=== PATIENT | male | born 1980 ===

== ENCOUNTER 2017-05-12 13:07 | Emergency (ER) | payer OTHER ==
[2017-05-12 13:15] VITALS: BP 149/80; PULSE 60; RESP 16; TEMP 97.4; O2SAT 99
--- NOTE | 2017-05-12 14:14 | ED PDOC ---
Lower Extremity Pain/Injury Time Seen by Provider: 05/12/17 13:29 Chief Complaint (Nursing): Lower Extremity Problem/Injury Chief Complaint (Provider): Left knee pain History Per: Patient History/Exam Limitations: no limitations Onset/Duration Of Symptoms: Days (x2) Current Symptoms Are (Timing): Still Present Additional Complaint(s): Gabriel Cruz Jr is a 36-year-old male who presents to the emergency department complaining of left knee pain since yesterday. Patient states he was walking up the stairs when he noticed a sharp pain to lateral aspect of the left knee. He took Tylenol yesterday with some improvement, but the pain returned after tylenol wore off. Patient denies any numbness or tingling to the area. PMD: None Past Medical History Reviewed: Historical Data, Nursing Documentation, Vital Signs Vital Signs: Last Vital Signs Temp 97.4 F L 05/12/17 13:13 Pulse 60 05/12/17 13:13 Resp 16 05/12/17 13:13 BP 149/80 05/12/17 13:13 Pulse Ox 99 05/12/17 13:13 - Medical History PMH: No Chronic Diseases - Surgical History Surgical History: Hernia Repair - Family History Family History: States: No Known Family Hx - Living Arrangements Living Arrangements: With Family - Social History Current smoker - smoking cessation education provided: No Alcohol: None Drugs: Denies - Home Medications Home Medications: Ambulatory Orders Medication Instructions Recorded Cyclobenzaprine [Cyclobenzaprine 10 mg PO Q8 PRN #30 tab 04/22/16 HCl] Naproxen [Naprosyn] 500 mg PO BID PRN #30 tab 04/22/16 Ibuprofen [Motrin] 600 mg PO Q6 PRN #15 tab 05/12/17 - Allergies Allergies/Adverse Reactions: Allergies Allergy/AdvReac Type Severity Reaction Status Date / Time No Known Allergies Allergy Verified 04/22/16 11:57 Wells Criteria for PE - Wells Criteria for Pulmonary Embolism Clinical Signs and Symptoms of DVT: No P.E is #1 Diagnosis, or Equally Likely: No Heart Rate >100: No Immobilization at least 3 days;Surgery previous 4 weeks: No Previous, objectively diagnosed PE or DVT: No Hemoptysis: No Malignancy w/treatment within 6 months, or palliative: No Total Score: 0 Review of Systems ROS Statement: Except As Marked, All Systems Reviewed And Found Negative Musculoskeletal: Positive for: Other (left knee pain) Physical Exam - Reviewed Nursing Documentation Reviewed: Yes Vital Signs Reviewed: Yes - Physical Exam Appears: Positive for: Well, Non-toxic, No Acute Distress Head Exam: Positive for: ATRAUMATIC, NORMAL INSPECTION, NORMOCEPHALIC Skin: Positive for: Normal Color. Negative for: Rash Eye Exam: Positive for: Normal appearance Pulses-Dorsalis Pedis (L): 2+ Pulses-Dorsalis Pedis (R): 2+ Extremity: Positive for: Tenderness (Point tenderness at lateral left tibial plateau with full rom of left knee), Capillary Refill (< 2 sec), Swelling (mild localized swelling to lateral left knee). Negative for: Calf Tenderness Neurologic/Psych: Positive for: Alert, Oriented - ECG O2 Sat by Pulse Oximetry: 99 (RA) Pulse Ox Interpretation: Normal - Other Rad Left knee x-ray X-Ray: Interpreted by Me, Viewed By Me X-Ray Interpretation: no fx, no dis Medical Decision Making Medical Decision Making: Time: 14:12 Initial Impression: 36 year old male with left knee pain Initial Plan: --X-Ray Left Knee --Pain meds offered but patient declined Patient aware of x-ray results. All questions answered. Knee immobilizer applied to left leg. Patient was given prescription for Motrin for pain relief. He was referred to orthopedist on-call for follow-up. Patient was offered crutches but he declined. Scribe Attestation: Documented by Amanda Shoemaker, acting as a scribe for Cathryn Harry PA-C Provider Scribe Attestation: All medical record entries made by the Scribe were at my direction and personally dictated by me. I have reviewed the chart and agree that the record accurately reflects my personal performance of the history, physical exam, medical decision making, and the department course for this patient. I have also personally directed, reviewed, and agree with the discharge instructions and disposition. Procedures - Splinting Location: left knee Pre-Made Type: knee immobilizer Pre-Proc Neuro Vasc Exam: normal Post-Proc Neuro Vasc Exam: normal Disposition - Clinical Impression Clinical Impression: Knee sprain - Patient ED Disposition Is Patient to be Admitted: No Counseled Patient/Family Regarding: Studies Performed, Diagnosis - Disposition Referrals: Justin Heaton III, MD [Staff Provider] - Disposition: Routine/Home Disposition Time: 15:36 Condition: STABLE Additional Instructions: Ice, rest and elevate affected area. Take prescription meds as directed as needed for pain. Follow-up with primary doctor or orthopedist for any persistent symptoms. Prescriptions: Ibuprofen [Motrin] 600 mg PO Q6 PRN #15 tab PRN Reason: Pain, Moderate (4-7) Instructions: Knee Sprain (ED), Knee Immobilizer (ED) Forms: [facility] ([place]), [facility] ED School/Work Excuse
--- NOTE | 2017-05-12 15:24 | RAD ---
PROCEDURE: Left Knee Radiographs. HISTORY: Pain. COMPARISON: None. FINDINGS: BONES: Normal. No fracture. JOINTS: Normal. No osteoarthritis. JOINT EFFUSION: None. OTHER FINDINGS: None. IMPRESSION: Normal radiographs of the left knee.
== END 2017-05-12 15:47 | disposition home or self-care (01) ==
LOC: H.ER 13:07
DX: S83.92XA Sprain of unspecified site of left knee, initial encounter (principal); X58.XXXA Exposure to other specified factors, initial encounter
CPT/HCPCS: 29530; 73562; 99283; L1830